=== PATIENT | female | born 1990 | race Caucasian/White ===

== ENCOUNTER 2017-04-27 21:27 | Emergency (ER) | payer MEDICAID ==
[~2017-04-27] VITALS: Ht 170.2 cm; Wt 62.0 kg
[2017-04-27 21:29] VITALS: BP 125/81
[2017-04-27] MEDS ORDERED: LIDOCAINE 1%, 20ML ONE (23:42)
[2017-04-27] MEDS ORDERED: BUPIVACAINE/PF 0.5% ONE (23:42)
[2017-04-28] MEDS ORDERED: BUPIVACAINE/PF 0.5% INFIL ONE
[2017-04-28] MEDS ORDERED: LIDOCAINE 1%, 20ML SQ ONE
== END 2017-04-28 00:11 | disposition home or self-care (01) ==
LOC: ED 23:59
DX: K04.7 Periapical abscess without sinus (principal)
CPT/HCPCS: 64400; 99284